=== PATIENT | female | born 2005 | race Hispanic/Latino ===

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

== ENCOUNTER 2024-08-21 22:14 | Emergency (ER) | payer OTHER ==
[~2024-08-21] VITALS: Ht 157.5 cm; Wt 66.3 kg
[2024-08-22] MEDS ORDERED: IBUPROFEN 800 MG TAB PO ONE (01:00)
[2024-08-22 01:30] VITALS: BP 118/78
== END 2024-08-22 01:33 | disposition home or self-care (01) ==
LOC: ED 22:14
DX: S90.31XA Contusion of right foot, initial encounter (principal); X50.1XXA Overexertion from prolonged static or awkward postures, initial encounter; Z88.6 Allergy status to analgesic agent
CPT/HCPCS: 99283

== ENCOUNTER 2025-09-20 22:52 | Emergency (ER) | payer OTHER ==
[~2025-09-20] VITALS: Ht 157.5 cm; Wt 62.5 kg
[2025-09-21 00:30] LABS: BASOPHILS 0.4 % (0.1-1.2); EOSINOPHILS 2.6 % (0.7-5.8); LYMPHOCYTES 32.8 % (19.3-51.7); MCH 25.8 PG (25.6-32.2); MCHC 32.7 g/dL (32.2-35.5); MCV 79.0 fL (79.4-94.8); MONOCYTES 6.6 % (4.7-12.5); NEUTROPHILS 57.5 % (34.0-71.1); RBC 4.76 M/uL (3.93-5.22)
[2025-09-21 00:47] LABS: ALT (SGPT) 14.0 U/L (14-59); AST (SGOT) 16.0 U/L (15-37); GLOMERULAR FILTRATION RATE,EST 133.0 mL/min (>60); PROTEIN, TOTAL 6.7 g/dL (6.4-8.2); UREA NITROGEN 11.0 mg/dL (7-18)
[2025-09-21] MEDS ORDERED: LACTATED RINGER'S 1,000 ML IV ONE (01:15)
[2025-09-21 05:04] LABS: BLOOD/HGB, URINE MODERATE (Negative); KETONE, URINE NEGATIVE (Negative); LEUK ESTERASE, URINE NEGATIVE (negative); NITRITE, URINE NEGATIVE (negative)
[2025-09-21 05:15] LABS: BACTERIA, URINE RARE /hpf (negative); CASTS, URINE NONE SEEN \\lpf; CRYSTALS, URINE NONE SEEN (0-1+); EPITHELIAL CELLS, URINE SQUAMOUS 1+ /lpf (0-1+); REFLEX CULTURE, URINE No (No)
[2025-09-21 05:38] VITALS: BP 121/73
== END 2025-09-21 05:40 | disposition home or self-care (01) ==
LOC: ED 22:52
PROVIDERS: Internal Medicine
DX: N94.6 Dysmenorrhea, unspecified (principal); Z88.8 Allergy status to other drugs, medicaments and biological substances
CPT/HCPCS: 36415; 76830; 76856; 80053; 81001; 84703; 85025; 99284-25